=== PATIENT | male | born 2000 | race Caucasian/White ===

== ENCOUNTER 2019-12-27 06:26 | Emergency (ER) | payer BC ==
[2019-12-27 07:35] VITALS: O2SAT 98
--- NOTE | 2019-12-27 07:40 | ERPHSYRPT ---
- History of Present Illness Time Seen by Provider: 12/27/19 07:28 Source: patient Exam Limitations: other (Vague historian) Patient Subjective Stated Complaint: pt states he has been having upper body aches, headaches for the last few months. stated pain tonight started at approx midnight. pt states pain is on lt temporal area but has been moivng around and was previously in the occipital area and rt temporal Triage Nursing Assessment: pt alert and oriented, answers questions approp. pt ambulatory with steady gait noted. respirations nonlabored with lungs cta. skin pink warm and dry. pupils equal and reactive. bilat upper and lower ext strength equal and wnl Physician History: 19 yo wm w L frontal JENNINGS x2 hours. Pain is rated 6/10 and worse w noise/lights/movements. It is described as sharp. He has had N wo V/fever/focal weakness/trauma. Pt denies h/o JENNINGS. Pt also complains of mid-sternal chest pain described as sharp x 6 wks wo radiation but has had some dyspnea/N associtaed w the pain. Timing/Duration: other (JENNINGS x2 hrs/CP x6wks) Quality: sharpness Head Pain Location: frontal (Left) Severity of Pain-Max: moderate Severity of Pain-Current: moderate Recent Head Trauma: no recent headache/trauma Modifying Factors: Improves With: other (Worse w noise/lights/movements) Associated Symptoms: nausea/vomiting, sensitive to light, No confusion, No dizziness, No fatigue, No facial pain, No fever/chills, No flushing, No light- headedness, No loss of consciousness, No nasal congestion, No nasal drainage, No neck pain, No numbness in legs/feet, No rash, No sweating, No scotoma, No seizures, No sinus infection, No speech problems, No stiff neck, No trouble walking, No vision changes, No visual disturbance, No weakness Previous symptoms: no prior history Allergies/Adverse Reactions: No Known Drug Allergies Allergy (Verified 12/27/19 06:54) Home Medications: No Reportable Medications [No Reported Medications] 12/27/19 [History] Hx Tetanus, Diphtheria Vaccination/Date Given: Yes Hx Influenza Vaccination/Date Given: Yes Hx Pneumococcal Vaccination/Date Given: No Immunizations Up to Date: Yes Travel Risk - International Travel Have you traveled outside of the country in past 3 weeks: No - Coronavirus Screening Are you exhibiting any of the following symptoms?: Yes Symptoms: Headaches/Body Aches/Fatigue Close contact with a COVID-19 positive Pt in past 14-21 Days: No - Review of Systems Constitutional: No Symptoms Eyes: No Symptoms, Photophobia Ears, Nose, & Throat: No Symptoms Respiratory: No Symptoms, Dyspnea Cardiac: No Symptoms, Chest Pain Abdominal/Gastrointestinal: No Symptoms, Nausea, No Vomiting Genitourinary Symptoms: No Symptoms Musculoskeletal: No Symptoms Skin: No Symptoms Neurological: No Symptoms Psychological: No Symptoms Endocrine: No Symptoms Hematologic/Lymphatic: No Symptoms Immunological/Allergic: No Symptoms - Past Medical History Pertinent Past Medical History: Yes Psycho-Social History: Depression, Attention Deficit Disorder - Past Surgical History Past Surgical History: No - Social History Smoking Status: Current every day smoker How long have you smoked: 1 yr Exposure to second hand smoke: Yes Drug Use: none Patient Lives Alone: No Significant Family History: no pertinent family hx - Nursing Vital Signs Nursing Vital Signs: Initial Vital Signs Temperature 97.8 F 12/27/19 06:39 Pulse Rate 68 12/27/19 06:39 Respiratory Rate 16 12/27/19 06:39 Blood Pressure 126/61 12/27/19 06:39 O2 Sat by Pulse Oximetry 99 12/27/19 06:39 Pain Scale Pain Intensity 0 - Physical Exam General Appearance: no apparent distress Eye Exam: PERRL/EOMI, eyes nml inspection Ears, Nose, Throat Exam: normal ENT inspection, TMs normal, pharynx normal, moist mucous membranes Neck Exam: normal inspection, non-tender, supple, full range of motion, No meningismus, No mass, No Brudzinski, No Kernig's, No carotid bruit, No JVD Respiratory Exam: normal breath sounds, lungs clear, airway intact Cardiovascular Exam: regular rate/rhythm, normal heart sounds, normal peripheral pulses, No murmur, No friction rub Gastrointestinal/Abdominal Exam: soft, normal bowel sounds, No tenderness Back Exam: normal inspection, normal range of motion, No CVA tenderness Extremity Exam: normal inspection, normal range of motion Mental Status Exam: alert, oriented x 3, cooperative 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 Exam: normal hearing, normal speech, PERRL Coordination/Gait Exam: normal finger to nose, normal gait, normal cerebellar function, negative Romberg's sign Motor/Sensory Exam: no motor deficit, no sensory deficit, no pronator drift DTR Exam: bicep (R): 2+, bicep (L): 2+, knee (R): 2+, knee (L): 2+ Skin Exam: normal color, warm, dry, No rash Lymphatic Exam: No adenopathy SpO2 Interpretation: normal SpO2: 98 - Course Nursing assessment & vital signs reviewed: Yes EKG Interpreted by Me: RATE (NSR/R68/Normal QT-QTc/No acute ST-Twave changes) - Radiology Exams Chest X-ray Interpretation: Discussed w/ radiologist (Neg per Rad) - CT Exams Head CT Interpretation: Discussed w/radiologist (Neg per Rad), Tele-radiologist Report Ordered Tests: Active Orders 24 hr Category Date Time Status EKG-ER Only STAT Care 12/27/19 07:28 Active CHEST 1 VIEW (PORTABLE) Stat Exams 12/27/19 07:29 Completed HEAD WITHOUT CONTRAST [CT] Stat Exams 12/27/19 07:28 Completed CBC W DIFF Stat Lab 12/27/19 07:28 Completed CMP Stat Lab 12/27/19 07:50 Completed TROPONIN Q3H Lab 12/27/19 07:50 Completed TROPONIN Q3H Lab 12/27/19 10:30 Ordered TROPONIN Q3H Lab 12/27/19 13:30 Ordered TROPONIN Q3H Lab 12/27/19 16:30 Ordered TROPONIN Q3H Lab 12/27/19 19:30 Ordered Lab/Rad Data: Laboratory Result Diagrams 12/27/19 07:28 12/27/19 07:50 Laboratory Results 12/27/19 12/27/19 12/27/19 Range/Units 07:50 07:50 07:28 WBC 6.1 (4.0-10.5) K/mm3 RBC 4.84 (4.1-5.6) M/mm3 Hgb 14.2 (12.5-18.0) gm/dl Hct 41.4 L (42-50) % MCV 85.5 (78-100) fl MCH 29.3 (26-32) pg MCHC 34.3 (32-36) g/dl RDW 12.5 (11.5-14.0) % Plt Count 221 (150-450) K/mm3 MPV 9.8 (7.5-11.0) fl Gran % 45.4 (36.0-66.0) % Eos # (Auto) 0.13 (0-0.5) Absolute Lymphs (auto) 2.58 (1.0-4.6) Absolute Monos (auto) 0.62 (0.0-1.3) Lymphocytes % 42.1 (24.0-44.0) % Monocytes % 10.1 (0.0-12.0) % Eosinophils % 2.1 (0.00-5.0) % Basophils % 0.3 (0.0-0.4) % Absolute Granulocytes 2.78 (1.4-6.9) Basophils # 0.02 (0-0.4) Sodium 138 (137-145) mmol/L Potassium 3.7 (3.5-5.1) mmol/L Chloride 102 (98-107) mmol/L Carbon Dioxide 30 (22-30) mmol/L Anion Gap 9.7 (5-15) MEQ/L BUN 21 H (9-20) mg/dL Creatinine 0.85 (0.66-1.25) mg/dL Estimated GFR > 60.0 ML/MIN Glucose 100 (74-106) mg/dL Calcium 9.4 (8.4-10.2) mg/dL Total Bilirubin 0.40 (0.2-1.3) mg/dL AST 40 (17-59) U/L ALT 19 (0-50) U/L Alkaline Phosphatase 66 (38-126) U/L Troponin I < 0.012 (0.000-0.034) ng/mL Serum Total Protein 7.8 (6.3-8.2) g/dL Albumin 4.4 (3.5-5.0) g/dL - Progress Progress: improved Progress Note: 12/27/19 08:52 60mg IM Toradol Antibiotics given: No Counseled pt/family regarding: lab results, diagnosis, need for follow-up, rad results - Departure Departure Disposition: Home Clinical Impression: Headache, Chest pain Condition: Stable Critical Care Time: No Referrals: MARCO ANTONIO ASHER NP [Primary Care Provider] - Instructions: Headache, Adult (DC), Chest Pain (DC) Additional Instructions: Follow up with your family MD in 1-2 days Return to ER for worsening pain/Focal weakness/Shortness of breath/Temperature greate than 100.5
[2019-12-27 07:58] LABS: Absolute Neutrophil Ct (ANC) 2.78 (1.4-6.9); BASOPHIL % 0.3 % (0.0-0.4); Basophil (Absolute #) 0.02 (0-0.4); Eosinophil % 2.1 % (0.00-5.0); Eosinophil (Absolute #) 0.13 (0-0.5); Hematocrit 41.4 % (42-50); Hemoglobin 14.2 gm/dl (12.5-18.0); Lymphocyte (Absolute #) 2.58 (1.0-4.6); Lymphocytes % 42.1 % (24.0-44.0); Mean Cell Volume 85.5 fl (78-100); Mean Corpuscular Hemoglobin 29.3 pg (26-32); Mean Corpuscular Hgb Concent. 34.3 g/dl (32-36); Mean Platelet Volume 9.8 fl (7.5-11.0); Monocyte (Absolute #) 0.62 (0.0-1.3); Monocytes % 10.1 % (0.0-12.0); Neutrophil % 45.4 % (36.0-66.0); Platelet Count 221 K/mm3 (150-450); Red Blood Count 4.84 M/mm3 (4.1-5.6); Red Cell Distribution Width 12.5 % (11.5-14.0); White Blood Count 6.1 K/mm3 (4.0-10.5)
[2019-12-27 08:16] LABS: ALBUMIN 4.4 g/dL (3.5-5.0); ALKALINE PHOSPHATASE 66 U/L (38-126); ANION GAP 9.7 MEQ/L (5-15); BLOOD UREA NITROGEN 21 mg/dL (9-20); CHLORIDE 102 mmol/L (98-107); Calcium 9.4 mg/dL (8.4-10.2); Carbon Dioxide 30 mmol/L (22-30); Creatinine 1 0.85 mg/dL (0.66-1.25); EST GLOMERULAR FILTRATION RATE > 60.0 ML/MIN; Glucose 100 mg/dL (74-106); Potassium 3.7 mmol/L (3.5-5.1); SGOT/AST 40 U/L (17-59); SGPT/ALT 19 U/L (0-50); SODIUM 138 mmol/L (137-145); Total Protein 7.8 g/dL (6.3-8.2)
--- NOTE | 2019-12-27 08:46 | XRAY ---
Indication: Intermittent chest pain 1 month. Comparison: None Portable chest demonstrates normal heart, lungs, and bony thorax.
--- NOTE | 2019-12-27 08:48 | XRAY ---
Indication: Intermittent headache 1 month. Left head injury 2 weeks ago. Multiple contiguous axial images obtained through the head without contrast. Comparison: None Normal appearing brain parenchyma, ventricles, and bony calvarium. Visualized paranasal sinuses and mastoid air cells are clear. Impression: Normal CT head without contrast exam.
[2019-12-27] MEDS ORDERED: TORAdol 30 mg Injection IM ONE (08:50)
[2019-12-27] MEDS ORDERED: TORAdol 30 mg Injection ONE ×2 (08:52→08:54)
[2019-12-27 09:08] VITALS: BP 124/65; PULSE 57
== END 2019-12-27 09:08 | disposition home or self-care (01) ==
LOC: ED 06:26
DX: R51.9 Headache, unspecified (principal); R07.9 Chest pain, unspecified
CPT/HCPCS: 36415; 70450; 71045; 80053; 84484; 85025; 93005; 96372; 99284; J1885